=== PATIENT | female | born 1965 | race Two or more races ===

== ENCOUNTER 2016-06-12 15:59 | Emergency (ER) | payer SELFPAY ==
[~2016-06-12] VITALS: Ht 167.6 cm; Wt 90.7 kg
[2016-06-12] MEDS ORDERED: HYDROCODONE/APAP 5/325MG 1 EACH TABLET PO ONE (19:00)
[2016-06-12] MEDS ORDERED: ONDANSETRON 4 MG TAB.RAPDIS SL ONE (19:00)
[2016-06-12] MEDS ORDERED: ONDANSETRON 4 MG TAB.RAPDIS ONE (19:04)
[2016-06-12] MEDS ORDERED: HYDROCODONE/APAP 5/325MG 1 EACH TABLET ONE (19:04)
[2016-06-12 21:43] VITALS: BP 125/75
== END 2016-06-12 21:43 | disposition home or self-care (01) ==
LOC: ER 16:03
DX: S16.1XXA Strain of muscle, fascia and tendon at neck level, initial encounter (principal); S29.012A Strain of muscle and tendon of back wall of thorax, initial encounter; S00.93XA Contusion of unspecified part of head, initial encounter; S80.01XA Contusion of right knee, initial encounter; I10 Essential (primary) hypertension; V49.40XA Driver injured in collision with unspecified motor vehicles in traffic accident, initial encounter; Y93.89 Activity, other specified; Y92.413 State road as the place of occurrence of the external cause; Y99.8 Other external cause status
CPT/HCPCS: 70450; 71020; 72070; 72125; 73560; 99284; A4606; L0172; Q0162; Z7610